=== PATIENT | male | born 1960 | race Caucasian/White ===

== ENCOUNTER 2017-12-01 18:05 | Inpatient (IN) | END 2017-12-03 15:28 | disposition home or self-care (01) | DRG 314 ==

== ENCOUNTER 2018-05-19 07:18 | Emergency (ER) | payer SELFPAY ==
[~2018-05-19] VITALS: Ht 177.8 cm; Wt 81.6 kg
[~2018-05-19 07:18] MED LIST: LAS20 PO; SPIR50TA4 PO
[2018-05-19 07:22] VITALS: Ht 177.8 cm; Wt 81.6 kg
[2018-05-19] MEDS ORDERED: HYDROmorphONE 1 MG/ML SYG IM STA (08:34)
[2018-05-19] MEDS ORDERED: ONDANSETRON (ODT) 4 MG TAB ODT STA (08:34)
--- NOTE | 2018-05-19 08:36 | ERD ---
ER Documentation Chief Complaint Chief Complaint pt here for paracentesis HPI This is a 57-year-old male with a known history of nonalcoholic steatohepatitis with ascites. The patient indicates that his last paracentesis was a week and a half ago at another facility. He is complaining of abdominal distention and mild dyspnea. He however denies any abdominal pain. He has had no fevers or shaking or chills. He denies any hemoptysis hematemesis or melanotic stools. The patient states he is hypotensive at baseline usually with a systolic blood pressure of roughly 90 mmHg. He denies a headache or dizziness. He denies any swelling of his lower extremities. ROS All systems reviewed and are negative except as per history of present illness. Medications Home Meds Active Scripts Furosemide (Lasix) 20 Mg Tab, 20 MG PO BID DIURETICS, #60 TAB Prov:ERICKSON CORNEJO 12/03/17 Spironolactone* (Aldactone*) 50 Mg Tablet, 50 MG PO BID DIURETICS, #60 TAB Prov:ERICKSON CORNEJO 12/03/17 Allergies Allergies: Coded Allergies: No Known Allergies (Verified Allergy, Unknown, 12/01/17) PMhx/Soc History of Surgery: No Anesthesia Reaction: No Hx Neurological Disorder: No Hx Respiratory Disorders: Yes (SOB, possible COPD,) Hx Cardiac Disorders: Yes (CHF, abdominal hernia) Hx Psychiatric Problems: Yes (anxiety, depression) Hx Miscellaneous Medical Probl: Yes (liver disease, insomnia) Hx Alcohol Use: Yes (Drinks every once in a while) Hx Substance Use: No Hx Tobacco Use: Yes Physical Exam Vitals Vital Signs Date Temp Pulse Resp B/P (MAP) Pulse Ox O2 O2 Flow FiO2 Time Delivery Rate 05/19/18 97.6 73 18 113/74 95 07:22 (87) Physical Exam Constitutional:Well-developed. Well-nourished. HEENT:Normocephalic. Atraumatic.Pupils were equal round reactive to light. Moist mucous membranes.No tonsillar exudates. No scleral icterus Neck: No nuchal rigidity. No lymphadenopathy. No posterior cervical spine tenderness or step-offs. Respiratory: Not using accessory muscles of respiration.Lungs were clear to auscultation bilaterally. No rhonchi. No rales. No wheezing. Cardiovascular: Regular rate regular rhythm.No murmurs. No rubs were appreciated.S1, S2 normal. Distal pulses are palpable 2+ bilaterally. GI: Tense abdominal ascites with positive fluid thrill. No tenderness.. No pulsatile abdominal masses or bruits. No rebound. No guarding. Bowel sounds were present and normal. Muscle skeletal: Full range of motion of both the upper and lower extremities bilaterally.Normal muscle tone.No assymetrical calf tenderness or swelling. Skin: No petechia, no purpura. No lesions on the palms or the soles of the feet. No maculopapular rash. No jaundice NEURO: Patient was alert, awake, orientated x3.No facial droop. Gait observed and normal with no ataxia.Speech had regular rate and rhythm. No focal neurological deficits. Result Diagram: 05/19/18 0851 05/19/18 0851 Results 24 hrs Laboratory Tests Test 05/19/18 08:49 05/19/18 08:51 Prothrombin Time 14.2 Sec Prothrombin Time Ratio 1.1 INR International Normalized Ratio 1.09 Activated Partial Thromboplast Time 29.3 Sec White Blood Count 10.4 10^3/ul Red Blood Count 4.35 10^6/ul Hemoglobin 13.0 g/dl Hematocrit 40.4 % Mean Corpuscular Volume 92.9 fl Mean Corpuscular Hemoglobin 29.9 pg Mean Corpuscular Hemoglobin Concent 32.2 g/dl Red Cell Distribution Width 16.7 % Platelet Count 330 10^3/UL Mean Platelet Volume 9.0 fl Immature Granulocytes % 0.600 % Neutrophils % 80.2 % Lymphocytes % 9.8 % Monocytes % 7.8 % Eosinophils % 1.1 % Basophils % 0.5 % Nucleated Red Blood Cells % 0.0 /100WBC Immature Granulocytes # 0.060 10^3/ul Neutrophils # 8.3 10^3/ul Lymphocytes # 1.0 10^3/ul Monocytes # 0.8 10^3/ul Eosinophils # 0.1 10^3/ul Basophils # 0.1 10^3/ul Nucleated Red Blood Cells # 0.0 10^3/ul Sodium Level 128 mmol/L Potassium Level 4.3 mmol/L Chloride Level 92 mmol/L Carbon Dioxide Level 27 mmol/L Anion Gap 9 Blood Urea Nitrogen 44 mg/dl Creatinine 1.44 mg/dl Est Glomerular Filtrat Rate mL/min 51 mL/min Glucose Level 98 mg/dl Calcium Level 8.5 mg/dl Total Bilirubin 0.2 mg/dl Direct Bilirubin 0.00 mg/dl Indirect Bilirubin 0.2 mg/dl Aspartate Amino Transf (AST/SGOT) 48 IU/L Alanine Aminotransferase (ALT/SGPT) 34 IU/L Alkaline Phosphatase 257 IU/L Total Protein 5.9 g/dl Albumin 3.0 g/dl Globulin 2.90 g/dl Albumin/Globulin Ratio 1.03 Current Medications Medications Dose Sig/Shmuel Start Time Status Last (Trade) Ordered Route PRN Stop Time Admin Dose Reason Admin 1 mg ONCE STAT 05/19/18 DC 05/19/18 Hydromorphone IM 08:34 09:00 HCl 05/19/18 08:36 (Dilaudid) Ondansetron 4 mg ONCE STAT 05/19/18 DC 05/19/18 HCl (Zofran ODT 08:34 08:56 Odt) 05/19/18 08:36 Procedures/MDM This is a very pleasant 57-year-old male that presented to the emergency department requiring a therapeutic paracentesis with no physical exam findings to suggest spontaneous bacterial peritonitis. The patient was not thrombocytopenic and coagulopathic. Therapeutic paracentesis was performed by the interventional radiologist and 5 L of fluid was removed. The patient tolerated the procedure well. He was asking for analgesic medication prior to the procedure. He was given IM Dilaudid and Zofran. The patient was hyponatremic with a serum sodium of 128. However the patient states this is around his baseline is he is normally a serum sodium 130. The patient had no signs or physical exam findings to suggest severe hyponatremia. The patient was discharged home in fair condition. They were instructed to return to the emergency department at any time if there was any worsening of their condition. The patient stated they would follow up with their PCP in the next 24-48 hours to initiate a suitable medication regimen under the care of their PCP as well as to allow their PCP to monitor any drug reactions. The patient was discharged home with prescriptions after they gave informed consent to the new medication. They were also fully informed by myself on the adverse effects and adverse drug interactions in order to provide adequate safeguards to prevent possible adverse reactions to medications. Departure Diagnosis: Primary Impression: Ascites of liver Additional Impression: Chronic hyponatremia Condition: HO Purcell MD May 19, 2018 08:36
--- NOTE | 2018-05-19 11:53 | NUR ---
US GUIDED RT PARACENTESIS PERFORMED PER DR BELLO 3500 ML FLUID ASPIRATED AND DISCARDED PT TOLERATED PROCEDURE WELL
[2018-05-19 12:20] VITALS: BP 123/78; PULSE 89
--- NOTE | 2018-05-19 12:25 | NUR ---
POST ULTRASOUND GUIDED PARACENTESIS: Vital signs stable during procedure. 1105 78-18 103/66 02 SAT RA 97% 1135 104-14 103/72 98% 1150 107-16 100/71 98%
[2018-05-19] MEDS ORDERED: LIDOCAINE 1% (MPF) 5 ML VIAL ONE (12:26)
== END 2018-05-19 12:48 | disposition home or self-care (01) ==
LOC: E/R 07:18
DX: R18.8 Other ascites (principal); E87.1 Hypo-osmolality and hyponatremia; R40.2142 Coma scale, eyes open, spontaneous, at arrival to emergency department; R40.2252 Coma scale, best verbal response, oriented, at arrival to emergency department; R40.2362 Coma scale, best motor response, obeys commands, at arrival to emergency department; I50.9 Heart failure, unspecified; R06.00 Dyspnea, unspecified; Z87.891 Personal history of nicotine dependence
CPT/HCPCS: 80053; 85025; 85610; 85730; 96372; 99285; J1170

== ENCOUNTER 2018-05-21 10:51 | Emergency (ER) | payer SELFPAY ==
[~2018-05-21] VITALS: Ht 175.3 cm; Wt 80.0 kg
[2018-05-21 11:06] VITALS: Ht 175.3 cm; Wt 80.0 kg
[2018-05-21] MEDS ORDERED: ONDANSETRON (ODT) 4 MG TAB ODT STA (11:42)
[2018-05-21] MEDS ORDERED: HYDROmorphONE 1 MG/ML SYG IM STA (11:42)
--- NOTE | 2018-05-21 12:49 | ERD ---
ER Documentation Chief Complaint Chief Complaint Complains of abdominal pain, needs paracentesis HPI This is a 57-year-old male who is here for abdominal swelling due to ascites. The patient has liver failure and is here for paracentesis. He says he is waited too long and is abdomen is very distended and he needs a drain. He says his pain is just from distention. He has no nausea vomiting diarrhea no fever no chest pain or shortness of breath ROS All systems reviewed and are negative except as per history of present illness. Medications Home Meds Discontinued Scripts Furosemide (Lasix) 20 Mg Tab, 20 MG PO BID DIURETICS, #60 TAB Prov:ERICKSON CORNEJO 12/03/17 Spironolactone* (Aldactone*) 50 Mg Tablet, 50 MG PO BID DIURETICS, #60 TAB Prov:ERICKSON CORNEJO 12/03/17 Allergies Allergies: Coded Allergies: No Known Allergies (Verified Allergy, Unknown, 05/21/18) PMhx/Soc History of Surgery: No Anesthesia Reaction: No Hx Neurological Disorder: No Hx Respiratory Disorders: Yes (SOB, possible COPD,) Hx Cardiac Disorders: Yes (CHF, abdominal hernia) Hx Psychiatric Problems: Yes (anxiety, depression) Hx Miscellaneous Medical Probl: Yes (liver disease, insomnia) Hx Alcohol Use: Yes (Drinks every once in a while) Hx Substance Use: No Hx Tobacco Use: Yes Smoking Status: Current every day smoker FmHx Family History: No coronary disease Physical Exam Vitals Vital Signs Date Temp Pulse Resp B/P (MAP) Pulse Ox O2 O2 Flow FiO2 Time Delivery Rate 05/21/18 98.0 108 20 124/63 98 11:06 (83) Physical Exam Const: Well-developed, well-nourished Head: Atraumatic, normocephalic Eyes: Normal Conjunctiva, PERRLA, EOMI, normal sclera, no nystagmus ENT: Normal External Ears, Nose and Mouth, moist mucus membranes. Neck: Full range of motion. No meningismus, no lymphadenopathy. Resp: Clear to auscultation bilaterally, no wheezing, rhonchi, rales Cardio: Regular rate and rhythm, no murmurs, S1 S2 present Abd: Soft, severe ascites with distention. Normal bowel sounds, no guar ding or rebound, no pulsitile abdominal masses or bruits Skin: No petechiae or rashes, no ecchymosis , no maculopapular rash Back: No midline or flank tenderness Ext: No cyanosis, or edema, FROM x 4, normal inspection, neurovascularly intact x 4 Neur: Awake and alert, STR 5/5 x 4, sensation intact x 4, no focal findings, cerebellum intact Psych: Normal Mood and Affect Results 24 hrs Current Medications Medications Dose Sig/Shmuel Start Time Status Last (Trade) Ordered Route PRN Stop Time Admin Dose Reason Admin 1 mg ONCE STAT 05/21/18 DC 05/21/18 Hydromorphone IM 11:42 11:56 HCl 05/21/18 11:43 (Dilaudid) Ondansetron 4 mg ONCE STAT 05/21/18 DC 05/21/18 HCl (Zofran ODT 11:42 11:56 Odt) 05/21/18 11:43 Procedures/MDM Patient received a therapeutic paracentesis by interventional radiologist here and his symptoms are improved. Patient feels much better at this time, and vital signs are normal, symptoms have improved. I did give strict instructions to return to the ED if symptoms continue or worsen, patient will otherwise follow-up with primary care physician. Patient understood instructions and agreed to plan. Disclaimer: Inadvertent spelling and grammatical errors are likely due to EHR/dictation software use and do not reflect on the overall quality of patient care. Also, please note that the electronic time recorded on this note does not necessarily reflect the actual time of the patient encounter. Departure Diagnosis: Primary Impression: Ascites Ascites type: other type Qualified Codes: R18.8 - Other ascites Condition: Stable OSMANY VEGA DO May 21, 2018 12:49
[2018-05-21] MEDS ORDERED: LIDOCAINE 1% (MPF) 5 ML VIAL ONE (14:35)
[2018-05-21 15:20] VITALS: BP 128/72; PULSE 72; RESP 20
== END 2018-05-21 15:21 | disposition home or self-care (01) ==
LOC: E/R 10:51
DX: R18.8 Other ascites (principal); I50.9 Heart failure, unspecified; F17.210 Nicotine dependence, cigarettes, uncomplicated
CPT/HCPCS: 96372; 99285; J1170

== ENCOUNTER 2018-05-25 06:09 | Emergency (ER) | payer MEDICAID ==
[~2018-05-25] VITALS: Ht 177.8 cm; Wt 77.0 kg
[2018-05-25 06:10] VITALS: Ht 177.8 cm; Wt 77.0 kg
[2018-05-25] MEDS ORDERED: LIDOCAINE/MYLANTA 40 ML BTL PO ONE (07:00)
[2018-05-25] MEDS ORDERED: PANTOPRAZOLE (EC) 40 MG TAB PO ONE (07:00)
[2018-05-25 09:40] VITALS: BP 111/54; PULSE 114; RESP 20
[2018-05-25 09:52] VITALS: BP 101/59; PULSE 108; RESP 20
[2018-05-25] MEDS ORDERED: LIDOCAINE 1% (MPF) 5 ML VIAL ONE (10:01)
[2018-05-25 10:11] VITALS: BP 101/72; PULSE 119; RESP 18
--- NOTE | 2018-05-25 12:57 | ERD ---
ER Documentation Chief Complaint Chief Complaint ABD PAIN WITH NAUSEA; HX OF ASCITES; LAST PARACENTESIS X5DAYS AGO HPI Patient is a 57-year-old male with cirrhosis who presents for paracentesis. The patient said that he usually gets a paracentesis twice per week. He has abdominal pain and feels like he is having acid reflux. It started this morning and has been worsening. He has no fevers. He said "Dilaudid really works for me but not morphine." ROS All systems reviewed and are negative except as per history of present illness. Medications Home Meds Discontinued Scripts Furosemide (Lasix) 20 Mg Tab, 20 MG PO BID DIURETICS, #60 TAB Prov:ERICKSON CORNEJO 12/03/17 Spironolactone* (Aldactone*) 50 Mg Tablet, 50 MG PO BID DIURETICS, #60 TAB Prov:ERICKSON CORNEJO 12/03/17 Allergies Allergies: Coded Allergies: No Known Allergies (Verified Allergy, Unknown, 05/21/18) PMhx/Soc History of Surgery: No Anesthesia Reaction: No Hx Neurological Disorder: No Hx Respiratory Disorders: Yes (SOB, possible COPD,) Hx Cardiac Disorders: Yes (CHF, abdominal hernia) Hx Psychiatric Problems: Yes (anxiety, depression) Hx Miscellaneous Medical Probl: Yes (liver disease, insomnia) Hx Alcohol Use: Yes (Drinks every once in a while) Hx Substance Use: No Hx Tobacco Use: Yes Smoking Status: Current every day smoker FmHx Family History: No diabetes Physical Exam Vitals Vital Signs Date Temp Pulse Resp B/P (MAP) Pulse Ox O2 O2 Flow FiO2 Time Delivery Rate 05/25/18 98.0 119 18 101/72 98 Room Air 10:11 (82) 05/25/18 97.4 108 20 101/59 95 Room Air 09:52 (73) 05/25/18 97.4 114 20 111/54 95 Room Air 09:40 (73) 05/25/18 118 18 99/54 (69) 100 Room Air 08:54 05/25/18 99.0 125 19 119/55 98 06:10 (76) Physical Exam Const: Moderate distress Head: Atraumatic Eyes: Normal Conjunctiva ENT: Normal External Ears, Nose and Mouth. Neck: Full range of motion. No meningismus. Resp: Clear to auscultation bilaterally Cardio: Regular rate and rhythm, no murmurs Abd: Abdominal pain with positive fluid wave Skin: No petechiae or rashes Back: No midline or flank tenderness Ext: No cyanosis, or edema Neur: Awake and alert Psych: Normal Mood and Affect Results 24 hrs Current Medications Medications Dose Sig/Shmuel Start Time Status Last (Trade) Ordered Route PRN Stop Time Admin Dose Reason Admin 40 ml ONCE ONCE 05/25/18 DC 05/25/18 Miscellaneous PO 07:00 06:41 Medication 05/25/18 07:01 (Gi Cocktail (2)) 40 mg ONCE ONCE 05/25/18 DC 05/25/18 Pantoprazole PO 07:00 06:41 (Protonix 05/25/18 07:01 Tab) Lidocaine 5 ml STK-MED 05/25/18 DC 05/25/18 (Xylocaine ONCE .ROUTE 10:01 10:08 1% (Mpf)) 05/25/18 10:02 Procedures/MDM Ultrasound-guided paracentesis performed by radiology. Smoking Cessation Therapy: Pt. was lectured for greater than 3 minutes on the health risks of continued smoking and the benefits of cessation. Patient is a 57-year-old male with cirrhosis who presents for paracentesis. The patient had paracentesis done by radiology. The patient will be discharged. I doubt spontaneous bacterial peritonitis. I did not think the patient requires narcotic medications. The patient was given a GI cocktail and Protonix. Departure Diagnosis: Primary Impression: Ascites Ascites type: other type Qualified Codes: R18.8 - Other ascites Additional Impression: Abdominal pain Abdominal location: generalized Qualified Codes: R10.84 - Generalized abdominal pain Condition: Fair Patient Instructions: Ascites Referrals: [facility] YOU HAVE RECEIVED A MEDICAL SCREENING EXAM AND THE RESULTS INDICATE THAT YOU DO NOT HAVE A CONDITION THAT REQUIRES URGENT TREATMENT IN THE EMERGENCY DEPARTMENT. FURTHER EVALUATION AND TREATMENT OF YOUR CONDITION CAN WAIT UNTIL YOU ARE SEEN IN YOUR DOCTORS OFFICE WITHIN THE NEXT 1-2 DAYS. IT IS YOUR RESPONSIBILITY TO MAKE AN APPOINTMENT FOR FOLOW-UP CARE. IF YOU HAVE A PRIMARY DOCTOR --you should call your primary doctor and schedule an appointment IF YOU DO NOT HAVE A PRIMARY DOCTOR YOU CAN CALL OUR PHYSICIAN REFERRAL HOTLINE AT IF YOU CAN NOT AFFORD TO SEE A PHYSICIAN YOU CAN CHOSE FROM THE FOLLOWING [facility] [address] [facility]. [facility] [address] [facility]. [facility] [address] [facility]. [facility] [address] [facility]. [facility] [address], [facility]. [facility] [address] Additional Instructions: Call your primary care doctor TOMORROW for an appointment during the next 1 WEEK.Tell the secretary office clerk that you were referred from this facility.See the doctor sooner or return here if your condition worsens before your appointment time. VIET PIKE MD May 25, 2018 12:57
== END 2018-05-25 10:59 | disposition home or self-care (01) ==
LOC: E/R 06:09
DX: R18.8 Other ascites (principal); R10.84 Generalized abdominal pain; I50.9 Heart failure, unspecified; F17.210 Nicotine dependence, cigarettes, uncomplicated
CPT/HCPCS: Z7502; Z7610

== ENCOUNTER 2018-05-29 11:35 | Emergency (ER) | payer MEDICAID ==
[~2018-05-29] VITALS: Ht 177.8 cm; Wt 74.4 kg
[2018-05-29 11:52] VITALS: Ht 177.8 cm; Wt 74.4 kg
--- NOTE | 2018-05-29 20:13 | ERD ---
ER Documentation Chief Complaint Chief Complaint abdominal distention x 2 days, sob HPI 57-year-old male well-known with a history of cirrhosis, recurrent ascites and frequent paracenteses presents the ED complaining of abdominal distention and requesting paracentesis. Also complaining of severe, nonlocalizing, total body pain. Several day history of nonproductive cough but denies shortness of breath or hemoptysis. No specific abdominal pain, nausea, vomiting hematemesis, hematochezia or melena. No URI symptoms, rhinorrhea or odynophagia. No fevers or chills. ROS All systems reviewed and are negative except as per history of present illness. Medications Home Meds No Active Prescriptions or Reported Meds Allergies Allergies: Coded Allergies: No Known Allergies (Verified Allergy, Unknown, 05/21/18) PMhx/Soc Reviewed in chart. As per HPI. History of Surgery: No Anesthesia Reaction: No Hx Neurological Disorder: No Hx Respiratory Disorders: Yes (SOB, possible COPD,) Hx Cardiac Disorders: Yes (CHF, abdominal hernia) Hx Psychiatric Problems: Yes (anxiety, depression) Hx Miscellaneous Medical Probl: Yes (liver disease, insomnia) Hx Alcohol Use: Yes (Drinks every once in a while) Hx Substance Use: No Hx Tobacco Use: Yes FmHx No family history relevant to presenting complaint Physical Exam Vitals Vital Signs Date Temp Pulse Resp B/P (MAP) Pulse Ox O2 O2 Flow FiO2 Time Delivery Rate 05/29/18 113 20 90/68 (75) 100 Room Air 22:10 05/29/18 98.2 107 18 91/63 (72) 99 Room Air 20:20 05/29/18 100.6 113 18 112/59 96 11:52 (76) Physical Exam Const: Alert, anxious but in no acute distress. Head: Atraumatic Eyes: Normal Conjunctiva. Sclera anicteric. ENT: Normal External Ears, Nose and Mouth. Neck: Full range of motion. No meningismus. No JVD. Resp: Breath sounds are equal and clear to auscultation bilaterally. No rales rhonchi or wheezes. Cardio: Regular rate and rhythm, no murmurs Abd: Soft, non tender, mild distention with positive fluid wave. No rebound or guarding.. Normal bowel sounds Skin: No petechiae or rashes Back: No midline or flank tenderness Ext: No cyanosis, or edema Neur: Awake and alert Psych: Normal Mood and Affect Results 24 hrs Current Medications Medications Dose Sig/Shmuel Start Time Status Last (Trade) Ordered Route PRN Stop Time Admin Dose Reason Admin 0.5 mg ONCE STAT 05/29/18 DC 05/29/18 Hydromorphone IV 21:18 21:36 HCl 05/29/18 21:19 (Dilaudid) Procedures/MDM DOCUMENTS REVIEWED: ED nurse, prior records. IMAGING: Chest AP lateral. Cardiomegaly. The costophrenic angles are clear. No effusions or infiltrates. No mediastinal widening. No pneumothorax. My interpretation. MEDICAL DECISION MAKIN-year-old male well-known with a history of cirrhosis, recurrent ascites and frequent paracenteses presents the ED complaining of abdominal distention and requesting paracentesis. Abdomen is soft, nontender, non-tense there is no indication for emergent paracentesis. Spontaneous bacterial peritonitis is considered but unlikely. Nonproductive cough without radiographic evidence of pneumonia, I am overload or pleural effusion. Stable for discharge with precautionary instructions and outpatient follow-up as counseled. Counseled patient regarding diagnostic workup, diagnosis and need for followup. Understands to return to ED if symptoms recur, worsen or any other concerns. Departure Diagnosis: Primary Impression: Ascites Ascites type: due to alcoholic cirrhosis Qualified Codes: K70.31 - Alcoholic cirrhosis of liver with ascites Additional Impressions: Cough Chronic pain Chronic pain type: other chronic pain Qualified Codes: G89.29 - Other chronic pain Condition: Stable NA EL MD May 29, 2018 20:13
[2018-05-29] MEDS ORDERED: HYDROmorphONE 0.5 MG/0.5 ML SYG IV STA (21:18)
[2018-05-29 23:11] VITALS: BP 94/72; PULSE 105; RESP 14
== END 2018-05-29 23:12 | disposition home or self-care (01) ==
LOC: E/R 11:35
DX: K70.31 Alcoholic cirrhosis of liver with ascites (principal); R05 Cough; G89.29 Other chronic pain; J44.9 Chronic obstructive pulmonary disease, unspecified; I50.9 Heart failure, unspecified; Z87.891 Personal history of nicotine dependence
CPT/HCPCS: 71045; 96374; J1170; Z7502